=== PATIENT | female | born 1960 | race Caucasian/White ===

== ENCOUNTER 2022-05-08 11:51 | Outpatient (CLI) | payer BC, SELFPAY ==
[2022-05-08 21:25] LABS: Chloride* 101 mmol/L (96-114)
[2022-05-08 21:26] LABS: Albumin* 4.3 g/dL (3.3-5.0); Potassium* 4.4 mmol/L (3.6-5.1); Sodium* 138 mmol/L (135-149)
[2022-05-08 21:28] LABS: Aspartate Amino Transferase* 15 U/L (12-35); Bilirubin Total* 0.1 mg/dL (0.1-1.5); Carbon Dioxide* 30 mmol/L (20-32); Creatinine* 0.6 mg/dL (0.5-1.5); Estimated Glomerular Filt Rate 101 ml/min
[2022-05-08 21:29] LABS: Alanine Aminotransferase* 9 U/L (4-35); Alkaline Phosphatase* 75 U/L (40-150); Blood Urea Nitrogen* 13 mg/dL (7-30); Calcium* 9.5 mg/dL (8.4-10.6); Glucose* 97 mg/dL (60-115); Lipase* 24 U/L (23-300); Total Protein* 6.7 g/dL (6.0-8.3)
== END 2022-05-08 11:52 | disposition home or self-care (01) ==
PROVIDERS: PCP Physician Assistant Medical; Visit Provider Physician Assistant Medical
DX: R19.7 Diarrhea, unspecified (principal)
CPT/HCPCS: 80053; 83690

== ENCOUNTER 2022-05-13 08:45 | Outpatient (CLI) | payer BC, SELFPAY ==
--- NOTE | 2022-05-13 08:45 | CRLHL7_ITS ---
For Patients: As a result of the Century Cures Act, medical imaging exams and procedure reports are released immediately into your electronic medical record. You may view this report before your referring provider. If you have questions, please contact your health care provider. INDICATION: ABDOMINAL DISTENSION (GASEOUS) COMPARISON: CT 08/08/2021 TECHNIQUE: Real time bryant scale imaging and color Doppler analysis was performed of the right upper quadrant. FINDINGS: The patient`s liver is of normal size and has coarsened and increased echogenicity. There is a normal appearance of the hepatic IVC and proximal abdominal aorta. There is no evidence of ascites. The gallbladder is of normal size and there is no evidence of intraluminal stones or sludge. The gallbladder wall measures 2 mm in thickness. The common bile duct is of normal size and measures 5 mm in diameter at the level of the melvin hepatis. The pancreas appears normal. There is no evidence of a stone or hydronephrosis within the right kidney. The right kidney measures 10.3 cm in length. IMPRESSION: Moderate hepatic steatosis. Remainder normal. Dictated by Danny Frost MD @ 05/13/2022 9:30:41 AM (Electronically Signed)
== END 2022-05-13 08:46 | disposition home or self-care (01) ==
PROVIDERS: PCP Physician Assistant Medical; Visit Provider Physician Assistant Medical
DX: R14.0 Abdominal distension (gaseous) (principal); K76.0 Fatty (change of) liver, not elsewhere classified
CPT/HCPCS: 76705

== ENCOUNTER 2022-10-15 17:41 | Outpatient (CLI) | payer BC, SELFPAY ==
--- NOTE | 2022-10-15 18:00 | CRLHL7_ITS ---
For Patients: As a result of the Century Cures Act, medical imaging exams and procedure reports are released immediately into your electronic medical record. You may view this report before your referring provider. If you have questions, please contact your health care provider. BILATERAL SCREENING MAMMOGRAM WITH COMPUTER-AIDED DETECTION AND TOMOSYNTHESIS TECHNIQUE: CC and MLO views were obtained. These mammographic images have been obtained using full-field digital technique. These mammographic images were interpreted with the benefit of computer-aided detection. Breast Tomosynthesis was used in this interpretation. COMPARISON FILM: 06/25/21, 06/20/20, 11/03/17. FINDINGS: There are scattered areas of fibroglandular density IMPRESSION: There is no radiographic evidence for malignancy. ASSESSMENT: BI-RADS Category 1: Negative RECOMMENDATION: Routine screening mammogram in 1 year. A lay language report of this examination will be provided to the patient. Danny Frost M.D. Diagnostic Radiologist [email or web address] CLAIR/Dictated by: Danny Frost MD @ 10/16/2022 10:50:00 AM (Electronically Signed)
== END 2022-10-15 17:42 | disposition home or self-care (01) ==
PROVIDERS: PCP Physician Assistant Medical; Visit Provider Physician Assistant Medical
DX: Z12.31 Encounter for screening mammogram for malignant neoplasm of breast (principal)
CPT/HCPCS: 77063; 77067

== ENCOUNTER 2022-11-07 09:34 | Outpatient (CLI) | payer BC, SELFPAY ==
[2022-11-07 14:01] LABS: Chloride* 103 mmol/L (96-114); Sodium* 140 mmol/L (135-149)
[2022-11-07 14:02] LABS: Potassium* 4.2 mmol/L (3.6-5.1)
[2022-11-07 14:04] LABS: Carbon Dioxide* 29 mmol/L (20-32); Cholesterol* 226 mg/dL (90-199); Creatinine* 0.7 mg/dL (0.5-1.5); Estimated Glomerular Filt Rate 97 ml/min
[2022-11-07 14:05] LABS: Blood Urea Nitrogen* 11 mg/dL (7-30); Glucose* 103 mg/dL (60-115); HDL Cholesterol* 70 mg/dL (>=50); LDL Cholesterol Calculated 119 mg/dL (<100); Triglycerides* 184 mg/dL (40-149)
[2022-11-11 12:47] LABS: Vitamin B12* 618 pg/mL (243-894)
== END 2022-11-07 09:35 | disposition home or self-care (01) ==
LOC: LKVREF 09:36
PROVIDERS: PCP Physician Assistant Medical; Visit Provider Physician Assistant Medical
DX: Z00.00 Encounter for general adult medical examination without abnormal findings (principal); R53.83 Other fatigue; E78.5 Hyperlipidemia, unspecified; K76.0 Fatty (change of) liver, not elsewhere classified; F32.A Depression, unspecified; R41.89 Other symptoms and signs involving cognitive functions and awareness
CPT/HCPCS: 80048; 80061; 82607; 84443

== ENCOUNTER 2022-11-28 10:44 | Outpatient (CLI) | payer BC, SELFPAY ==
--- NOTE | 2022-11-28 11:00 | CRLHL7_ITS ---
For Patients: As a result of the Century Cures Act, medical imaging exams and procedure reports are released immediately into your electronic medical record. You may view this report before your referring provider. If you have questions, please contact your health care provider. INDICATION: Lung cancer screening. History of smoking. High risk patient with a 50 pack-year smoking history. The patient stopped smoking in 2020. TECHNIQUE: Low-dose lung cancer screening non-contrast CT chest. Dose reduction techniques were used. COMPARISON: None. FINDINGS: NODULES: None. LUNGS AND PLEURA: Normal. MEDIASTINUM: Normal. CORONARY ARTERY CALCIFICATION: None. LIMITED UPPER ABDOMEN: Normal. MUSCULOSKELETAL: Degenerative changes of the lower cervical spine. IMPRESSION: Negative for lung cancer screening purposes. LUNG-RADS CATEGORY: 1: Negative. RADIOLOGIST RECOMMENDATION: Continue annual screening with low-dose CT chest in 12 months. Please note that all CT scans at this facility use dose modulation, iterative reconstruction, and/or weight-based dosing when appropriate to reduce radiation dose to as low as reasonably achievable. Dictated by Scooby Hall MD @ 11/28/2022 3:33:20 PM (Electronically Signed)
== END 2022-11-28 10:45 | disposition home or self-care (01) ==
LOC: CT 10:45
PROVIDERS: PCP Physician Assistant Medical; Visit Provider Physician Assistant Medical
DX: Z12.2 Encounter for screening for malignant neoplasm of respiratory organs (principal); Z87.891 Personal history of nicotine dependence
CPT/HCPCS: 71271

== ENCOUNTER 2023-12-01 10:44 | Outpatient (CLI) | payer OTHER, SELFPAY ==
--- NOTE | 2023-12-01 11:00 | CT_ITS ---
Final Report Patient: QUINN HAGAN Facility:?[facility] Patient ID:?[id number] Site Patient ID:?[id number]. Site :?1960 Study:?CT Chest LUNG SCREENING-12/01/2023 11:13:53 AM Ordering Physician:?GWEN MI Final Report: INDICATION: Lung cancer screening. History of smoking. High risk patient with greater than 50 pack-year smoking history. TECHNIQUE: Low-dose lung cancer screening non-contrast CT chest. Dose reduction techniques were used. COMPARISON: 3 FINDINGS: NODULES: None. LUNGS AND PLEURA: Emphysema. MEDIASTINUM: No adenopathy. CORONARY ARTERY CALCIFICATION: None. LIMITED UPPER ABDOMEN: Postop changes to the left breast tissue. MUSCULOSKELETAL: Degenerative disc disease. IMPRESSION: Negative for lung cancer screening purposes. LUNG-RADS CATEGORY: 1: Negative. RADIOLOGIST RECOMMENDATION: Continue annual screening with low-dose CT chest in 12 months. Please note that all CT scans at this facility use dose modulation, iterative reconstruction, and/or weight-based dosing when appropriate to reduce radiation dose to as low as reasonably achievable. Dictated by Danny Frost MD @ 12/01/2023 11:22:11 AM (Electronic Signature)
== END 2023-12-01 10:45 | disposition home or self-care (01) ==
PROVIDERS: PCP Physician Assistant Medical; Visit Provider Physician Assistant Medical
DX: Z12.2 Encounter for screening for malignant neoplasm of respiratory organs (principal); Z87.891 Personal history of nicotine dependence
CPT/HCPCS: 71271

== ENCOUNTER 2023-12-19 08:49 | Outpatient (CLI) | payer OTHER, SELFPAY | END 2023-12-19 08:50 | disposition home or self-care (01) | LOC: NFLDREF 12-22 06:22 | PROVIDERS: PCP Physician Assistant Medical; Referring Provider Physician Assistant Medical; Visit Provider Physician Assistant Medical | DX: E78.5 Hyperlipidemia, unspecified (principal); K76.0 Fatty (change of) liver, not elsewhere classified; R73.01 Impaired fasting glucose; Z13.29 Encounter for screening for other suspected endocrine disorder; Z13.21 Encounter for screening for nutritional disorder | CPT/HCPCS: 80053; 80061; 82306; 84443 ==

== ENCOUNTER 2024-04-20 17:35 | Outpatient (CLI) | payer OTHER, SELFPAY ==
--- NOTE | 2024-04-20 17:40 | CRLHL7_ITS ---
For Patients: As a result of the Century Cures Act, medical imaging exams and procedure reports are released immediately into your electronic medical record. You may view this report before your referring provider. If you have questions, please contact your health care provider. BILATERAL SCREENING MAMMOGRAM WITH COMPUTER-AIDED DETECTION AND TOMOSYNTHESIS TECHNIQUE: CC and MLO views were obtained. These mammographic images have been obtained using full-field digital technique. These mammographic images were interpreted with the benefit of computer-aided detection. Breast tomosynthesis was used in this interpretation. COMPARISON FILM: 10/15/22, 06/25/21, 06/20/20. FINDINGS: There are scattered areas of fibroglandular density. IMPRESSION: There is no radiographic evidence for malignancy. ASSESSMENT: BI-RADS Category 1: Negative RECOMMENDATION: Routine screening mammogram in 1 year. A lay language report of this examination will be provided to the patient. DANNY PAREDES M.D. Diagnostic Radiologist [email or web address] Transcribed: 2:[address]/Dictated by: Danny Paredes MD @ 04/21/2024 11:02:00 AM (Electronically Signed)
== END 2024-04-20 17:36 | disposition home or self-care (01) ==
LOC: MAMMO 17:35
PROVIDERS: PCP Physician Assistant Medical; Visit Provider Physician Assistant Medical
DX: Z12.31 Encounter for screening mammogram for malignant neoplasm of breast (principal)
CPT/HCPCS: 77063; 77067

== ENCOUNTER 2024-06-09 13:35 | Outpatient (CLI) | payer OTHER, SELFPAY ==
--- NOTE | 2024-06-09 13:45 | MR_ITS ---
[address] [address] Phone:?[phone] Fax:?[phone] Referring Physician Information: Sony Lopez [address] [facility] [address] Phone:?[phone] Fax:?[phone] Patient:Sylvester Galaviz D.O.B:?1960 Sex:?Female Phone:?[phone] [facility] MRN:?[id number] Exam Date:?06/09/2024 EXAM: MRI of the LEFT SHOULDER, without contrast CLINICAL: Left shoulder pain. Evaluate for rotator cuff injury. COMPARISONS: X-rays dated 06/03/2024. TECHNICAL: Multiplanar multisequence MRI of the left shoulder was obtained. SEDATION: None. CONTRAST: None. FINDINGS: Rotator cuff: Supraspinatus/Infraspinatus: There is high-grade near full-thickness to full- thickness tearing involving the anterior aspect of the distal supraspinatus tendon on coronal series 7 images 9-10. There is mild partial interstitial insertional tearing of the remainder of the distal supraspinatus tendon on coronal series 7 images 11-12. Advanced tendinosis of the anterior supraspinatus tendon with moderate tendinosis of the remainder of the supraspinatus tendon and infraspinatus tendon. No significant fatty atrophy of the muscle bellies. Teres minor: No tendinosis, tear or atrophy. Subscapularis: There is moderate tendinosis and mild partial tearing of the distal tendon. No significant fatty atrophy of the muscle belly. Bursae: Subacromial-subdeltoid: Mild bursal fluid. Subcoracoid: No significant bursal fluid. Coracoacromial arch: Acromion morphology: Type II. No os acromiale. Acromiohumeral space: Within normal limits. Coracohumeral space: Within normal limits. Biceps tendon, long head: There is ill-defined tendinosis and partial tearing of the imaged proximal extra-articular tendon extending into the intra-articular tendon. There is moderate fluid with some low signal synovitis also noted about the imaged proximal extra-articular tendon. No evidence of significant tendon displacement. Glenohumeral joint: Small volume of glenohumeral joint fluid is present. Articular cartilage: No significant chondral loss. Capsule: No convincing evidence of capsular thickening or injury. Labrum: Mild degenerative changes are seen to involve the superior labrum. No discrete labral tear identified as visualized. No perilabral cyst identified. Bones: No suspicious marrow signal alteration, fracture or dislocation. Acromioclavicular joint: Moderate degenerative hypertrophic changes are seen to involve the AC joint with mild reactive marrow edema about the articulation. No AC joint injury/widening. IMPRESSION: 1. High-grade near full-thickness to full-thickness tearing involving the anterior distal supraspinatus tendon. Mild partial interstitial insertional tearing of the remainder of the distal supraspinatus tendon. There is advanced tendinosis of the anterior distal supraspinatus tendon with moderate tendinosis of the remainder of the distal supraspinatus tendon and involving the infraspinatus tendon. 2. Moderate tendinosis and mild partial tearing of the distal subscapularis tendon. 3. Ill-defined tendinosis and partial tearing of the long head biceps tendon. Moderate fluid with some synovitis also noted about the imaged proximal extra- articular tendon. 4. Moderate AC joint arthrosis. [facility] Electronically signed on 06/09/2024 3:51:00 PM by Trev Verma D.O.
== END 2024-06-09 13:36 | disposition home or self-care (01) ==
PROVIDERS: PCP Physician Assistant Medical; Visit Provider Physician Assistant Medical
DX: M25.512 Pain in left shoulder (principal); M75.102 Unspecified rotator cuff tear or rupture of left shoulder, not specified as traumatic; S46.212A Strain of muscle, fascia and tendon of other parts of biceps, left arm, initial encounter; S46.912A Strain of unspecified muscle, fascia and tendon at shoulder and upper arm level, left arm, initial encounter; M19.012 Primary osteoarthritis, left shoulder
CPT/HCPCS: 73221

== ENCOUNTER 2024-06-30 07:03 | Day surgery (SDC) | payer OTHER, SELFPAY ==
[2024-06-30] VITALS (18 sets, daily range): BP systolic 124–148; BP diastolic 68–98; PULSE 62–92; RESP 14–17; TEMP 36.1–36.8; O2SAT 93–97; BMI 34.4
--- NOTE | 2024-06-30 07:33 | W.PM.H&PU ---
History & Physical Update History & Physical Update H&P Reviewed and patient assessed: No changes noted
[2024-06-30] MEDS: SODIUM CHLORIDE 0.9 % (FLUSH) 10 ML SYRINGE IVF (07:45)
[2024-06-30] MEDS: LACTATED RINGERS 1000 ML 1,000 ML 100 ML IV ×2 (07:45→10:02)
[2024-06-30] MEDS: SCOPOLAMINE 1 MG/3 DAY PATCH 1 PATCH TRANSDERMA (08:15)
[2024-06-30] MEDS: fentaNYL 100 MCG/2 ML inj IVP (08:29)
[2024-06-30] MEDS: MIDAZOLAM HCL 1 MG/ML inj IVP (08:29)
--- NOTE | 2024-06-30 08:31 | SUR.PREOP ---
TIME?OUT:827? PT/RN/MDA?VERIFICATION?OF?SURGICAL?SITE,?PROCEDURE,?AND?CONSENT OBTAINED?PRIOR?TO?INVASIVE?PROCEDURE.
[2024-06-30] MEDS: CEFAZOLIN 2 GM in 0.9 % SODIUM CHLORIDE Mini-bag 100 ML IVPB (08:55)
[2024-06-30] MEDS: EPINEPHrine 1 MG in SODIUM CHLORIDE IRRIG SOLUTION 3,000 ML 3001 MG IRRIGATION ×8 (09:18→10:37)
--- NOTE | 2024-06-30 09:24 | SUR.OPER ---
PATIENT QUESTIONS ANSWERED SATISFACTORILY PREOPERATIVELY. PATIENT BROUGHT TO OR #3 PER CART FOLLOWING THE BLOCK. Patient positioned supine on OR #3 bed for the intubation.? Perioperative team wrapped the right arm in a neutral position on the pt. abdomen with the drawsheet. Left arm elevated on an IV pole in a padded strap. Final approval of positioning by surgeon. CONTINUOUS IRRIGATION OF THE LEFT SHOULDER WITH MIXTURE OF 3000 NACL AND 1mg OF EPINEPHRINE DURING PROCEDURE.
--- NOTE | 2024-06-30 10:40 | PM.ORPRC ---
Procedure Note Date of procedure: 06/30/24 Procedure: PREOPERATIVE DIAGNOSES: 1. Left shoulder rotator cuff tear. 2. Left shoulder AC joint osteoarthrosis 3. Left shoulder long head biceps partial-thickness tearing 4. Left shoulder labral degenerative fraying tearing 5. Left shoulder subacromial impingement syndrome. POSTOPERATIVE DIAGNOSES: 1. Left shoulder rotator cuff tear (upper border subscapularis and full-thickness supraspinatus) 2. Left shoulder AC joint osteoarthrosis 3. Left shoulder long head biceps partial-thickness tearing 4. Left shoulder labral degenerative fraying tearing 5. 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 Left shoulder subacromial impingement syndrome. NAME OF OPERATION: 1. Left shoulder arthroscopic rotator cuff repair (upper border subscapularis & full-thickness supraspinatus) 2. Left shoulder arthroscopic distal clavicle excision 3. Left shoulder arthroscopic extensive glenohumeral debridement including biceps tenotomy and biceps tendon stump debridement, labral debridement, and humeral head chondral tissue debridement) 4. Left shoulder arthroscopic subacromial decompression SURGEON: Giorgi Delgado MD CRIMINAL PROFILER: Emile Cardenas PA-C. Of note, a skilled mental health assistant was critical for this case to aide in patient positioning, suture manipulation, arm positioning, instrument positioning, and closure. ANESTHESIA: General plus preoperative supraclavicular block. EBL: 25 mL IMPLANTS: Arthrex 4.75 mm BioComposite SwiveLock suture anchor (x1); Arthrex 5.5 mm BioComposite SwiveLock suture anchor (x2); Arthrex 2.6 mm knotless FiberTak RC (x2) COMPLICATIONS: None evident INDICATIONS: The patient is a pleasant, 63-year-old female who has experienced left shoulder pain that has been increasing in recent time. Physical exam and imaging were consistent with a rotator cuff tear. Given their findings, as well as the weakness and pain, and inadequate response to nonoperative management, recommendation was made for surgery. FINDINGS: Exam under anesthesia revealed stable shoulder with excellent range of motion. The diagnostic arthroscopy revealed grade 2-3 chondromalacia humeral head anterosuperiorly.. The Subscapularis tendon was torn from its upper border with moderate retraction. The long head of the biceps tendon was torn and high-grade partial-thickness manner through all the visualized intra-articular biceps tendon and was subluxed out of the bicipital groove. The superior rotator cuff tendon was found to be torn full-thickness through the entire supraspinatus and the anterior portion of the infraspinatus. The labrum was degeneratively frayed in the anterior and superior aspects. No loose bodies were identified within the pouch or subscapularis recess. PROCEDURE: Following a thorough discussion of risks, benefits, and alternatives, consent was obtained and the left shoulder was marked. The patient was brought to the operating room and placed supine on the operating table. Induction of anesthesia was completed after preoperative supraclavicular block was administered in preop holding. Appropriate time out was performed identifying proper patient, site, and procedure. 2 g IV Ancef was administered within 1 hour of incision preoperatively. The left upper extremity was prepped and draped in the appropriate sterile fashion using ChloraPrep prep. This was after the patient was positioned in the beach chair with their head in neutral alignment and all bony prominences well padded. The shoulder was insufflated with 20mL of normal saline via an 18g spinal needle from a posterior approach. An 11 blade skin incision allowed a blunt trochar to be inserted and diagnostic arthroscopy to be performed with the findings as noted above. An anterior portal was established with an outside in technique. This allowed the probe to be inserted and confirm the diagnostic arthroscopic findings. The shaver was then inserted and allowed debridement of the anterior and superior labrum as well as the loose chondral flaps on the anterosuperior humeral head and finally the biceps tendon tissue after performing a biceps tenotomy with a combination of Beaufort cautery and torpedo shaver. Accordingly, the biceps tendon had high-grade partial-thickness tearing and the tissue quality was poor and would not likely be amenable to tenodesis, and thus a biceps tenotomy was performed. The stump was debrided with a shaver. Following this, the upper border subscapularis was repaired after debriding the lesser tuberosity with the shaver and Beaufort cautery. Subscapularis was captured in horizontal mattress fashion with a fiber tape suture. The tails were brought to a single anchor in the lesser tuberosity with excellent reapproximation of the subscap tendon and good excursion/tension. Thereafter, the subacromial space was entered. Here, a complete bursectomy and partial acromioplasty/subacromial decompression was performed with a combination of radiofrequency ablator, the shaver, and a 5.5 mm bur. Additionally, distal clavicle excision was performed with the bur. 8 mm of distal clavicle was resected based on the width of our bur. Further inspection of the supraspinatus and infraspinatus rotator cuff was performed. This identified the tear as noted above. The margins of the tear were debrided, and the greater tuberosity was debrided with a combination of the apollo cautery, shaver, and bur on reverse setting. After gentle decortication, a speed bridge configuration with a medial jessa was planned. 2 medial anchors were placed and the sutures were passed through the rotator cuff with a fiber link (2.6 mm knotless FiberTak RC). The knotless suture tails were then retrieved, crossed, and cinched down for the medial jessa purpose. A tail from each of the medial row anchor FiberTapes were then retrieved and brought to a lateral row anchor. Excellent reapproximation of the tissue to the greater tuberosity was achieved with broad footprint compression. The rotator cuff showed excellent reapproximation of the greater tuberosity with good security upon probing. Prior to anchor mule driver removal, the eyelet sutures were tugged on for each anchor and found that the anchor had excellent stability within the bone. The shoulder was placed through range of motion and found to be stable. The rotator cuff was re-probed and found to be stable. Instruments were removed. Excess fluid was drained, closure performed with 4-0 Monocryl and Steri-Strips. Dressings were applied. Sling was applied. The patient was awoken from anesthesia and transferred to the PACU in stable condition. A skilled mental health assistant was critical for this case to aid in patient positioning, limb positioning, skill to manipulate arthroscopic instruments and camera, suture management, patient safety, and closure. PLAN: 1. Elbow, forearm, wrist and digit range of motion of operative extremity as tolerated. 2. Encouraged ice. 3. Oxycodone for pain as needed. 4. Sling at all times except for ROM and showering. 5. Follow up with PA visit in 1-2 weeks for wound check. Initiate physical therapy following that visit for passive range of motion. Initiate active assisted range of motion at 6 weeks. May do pendulums now.
--- NOTE | 2024-06-30 10:59 | W.ANESCHARGE ---
Anesthesia Charges Start Date/Time Anesthesia Start Date: 06/30/24 Anesthesia Start Time: 08:42 Stop Date/Time Anesthesia Stop Date: 06/30/24 Anesthesia Stop Time: 10:58
--- NOTE | 2024-06-30 11:01 | W.PM.NB ---
Nerve Block Nerve Block Time Seen by Provider: 08:38 Date Seen: 06/30/24 Type of block requested by surgeon for post-operative analgesia: supraclavicular Side: left Time out performed: Yes Verification of patient name: Yes Verification of date of : Yes Site marking: site marked Name of person performing procedure: Liban Continuous monitoring Was continuous monitoring of O2 sat, B/P, cardiac specialist, recorded every 15 minutes?: Yes Procedure Checklist: sterile prep, needles and gloves Ultrasound guided. Images saved: Yes Medications given in 5ml increments after negative aspiration: Ropivicaine %: 0.5 mL: 20 Needle gauge: 22 Decadron (mg): 10 Precedex (mcg): 25 Patient tolerated procedure well: Yes Block Charges Block Charge (with Pro Fee): Brachial Plexus Use of Ultrasound Machine for Block: Yes- US Guidance/pain block
--- NOTE | 2024-06-30 11:02 | W.ANESCHARGE ---
Anesthesia Charges Start Date/Time Anesthesia Start Date: 06/30/24 Anesthesia Start Time: 08:42 Stop Date/Time Anesthesia Stop Date: 06/30/24 Anesthesia Stop Time: 10:58
[2024-06-30] MEDS: fentaNYL 100 MCG/2 ML inj 50 MCG IVP (11:24)
--- NOTE | 2024-06-30 11:41 | SUR.PHASEI ---
AFTER TAKING BLOOD PRESSURE CUFF OFF/RED LINES FROM TOURNIQUET NOTED. PATIENT STATES THAT THIS ALWAYS HAPPENS FROM TOURNIQUET CUFF BEING ON AFTER ANY PROCEDURES WHERE SHE HAD A CUFF ON.
--- NOTE | 2024-06-30 12:10 | SUR.PHASEII ---
Localized petechiae rash noted at IV site, no itchiness noted with rash upon arrival in SDS from PACU. Rash reported to Anesthesia, if patient develops itchiness with rash ok to give benedryl. Will continue to monitor.
[2024-06-30] MEDS: OXYCODONE 5 MG TABLET PO (12:30)
== END 2024-06-30 13:15 | disposition home or self-care (01) ==
LOC: OR 07:05
PROVIDERS: PCP Physician Assistant Medical; Visit Provider Orthopaedic Surgery Sports Medicine
PROC: (CPT 29805; principal; 2024-06-30 09:00)
DX: M75.102 Unspecified rotator cuff tear or rupture of left shoulder, not specified as traumatic (principal); M19.012 Primary osteoarthritis, left shoulder; S46.112A Strain of muscle, fascia and tendon of long head of biceps, left arm, initial encounter; S43.432A Superior glenoid labrum lesion of left shoulder, initial encounter; M94.212 Chondromalacia, left shoulder; M75.42 Impingement syndrome of left shoulder; G89.18 Other acute postprocedural pain
CPT/HCPCS: 29827; 29828; 29826; 29824; 29823; 01630; 64415; 76942; A9270; C1713; J0171; J0330; J0690; J2250; J2371; J2405; J2704; J2795; J3010; J7120; L3670

== ENCOUNTER 2024-08-30 13:45 | Outpatient (RCR) | payer OTHER, SELFPAY | END 2024-12-28 23:59 | disposition home or self-care (01) | PROVIDERS: PCP Physician Assistant Medical; Visit Provider Physician Assistant Medical | DX: M25.512 Pain in left shoulder (principal); Z98.890 Other specified postprocedural states; Z74.09 Other reduced mobility; R53.1 Weakness; M54.2 Cervicalgia; Z51.89 Encounter for other specified aftercare | CPT/HCPCS: 97016; 97110; 97140; 97161; 97164 ==

== ENCOUNTER 2025-03-21 15:57 | Outpatient (CLI) | payer MEDICARE, SELFPAY | END 2025-03-21 15:58 | disposition home or self-care (01) | PROVIDERS: PCP Physician Assistant Medical; Visit Provider Physician Assistant Medical | DX: E78.5 Hyperlipidemia, unspecified (principal); R53.83 Other fatigue; H04.123 Dry eye syndrome of bilateral lacrimal glands; I10 Essential (primary) hypertension; R73.01 Impaired fasting glucose; R41.89 Other symptoms and signs involving cognitive functions and awareness | CPT/HCPCS: 85520; 85525; 85598; 85610; 85613; 85670; 85730; 86038; 86140; 86235; 86431 ==

== ENCOUNTER 2025-04-25 09:14 | Outpatient (CLI) | payer MEDICARE, SELFPAY | END 2025-04-25 09:15 | disposition home or self-care (01) | LOC: NFLDREF 04-26 15:36 | PROVIDERS: PCP Physician Assistant Medical; Referring Provider Physician Assistant Medical; Visit Provider Physician Assistant Medical | DX: E78.5 Hyperlipidemia, unspecified (principal); R73.01 Impaired fasting glucose; I10 Essential (primary) hypertension; Z79.899 Other long term (current) drug therapy | CPT/HCPCS: 80053; 80061; 82306; 84443 ==

== ENCOUNTER 2025-06-02 15:36 | Outpatient (CLI) | payer MEDICARE, SELFPAY ==
[2025-06-04 03:56] LABS: HPV Source Cervix
[2025-06-08 09:41] LABS: Pap Test Digital Imaging Done
== END 2025-06-02 15:37 | disposition home or self-care (01) ==
PROVIDERS: PCP Physician Assistant Medical; Visit Provider Physician Assistant Medical
DX: Z00.00 Encounter for general adult medical examination without abnormal findings (principal)
CPT/HCPCS: 87624; 87625; 88141; 88142; 88175

== ENCOUNTER 2025-07-07 13:51 | Outpatient (CLI) | payer MEDICARE, SELFPAY ==
--- NOTE | 2025-07-07 14:00 | CRLHL7_ITS ---
For Patients: As a result of the Century Cures Act, medical imaging exams and procedure reports are released immediately into your electronic medical record. You may view this report before your referring provider. If you have questions, please contact your health care provider. INDICATION: Lung cancer screening. History of smoking. High risk patient with greater than 50 pack-year smoking history. TECHNIQUE: Low-dose lung cancer screening non-contrast CT chest. Dose reduction techniques were used. COMPARISON: 12/01/2023 FINDINGS: NODULES: None. LUNGS AND PLEURA: Emphysema. MEDIASTINUM: No adenopathy. Similar appearance of the thyroid. CORONARY ARTERY CALCIFICATION: Mild. LIMITED UPPER ABDOMEN: Unremarkable. MUSCULOSKELETAL: Degenerative disc disease. IMPRESSION: Negative for lung cancer screening purposes. LUNG-RADS CATEGORY: 1: Negative. RADIOLOGIST RECOMMENDATION: Continue annual screening, if eligible, with low-dose CT chest in 12 months. Please note that all CT scans at this facility use dose modulation, iterative reconstruction, and/or weight-based dosing when appropriate to reduce radiation dose to as low as reasonably achievable. Dictated by Danny Frost MD @ 07/07/2025 2:35:42 PM (Electronically Signed)
--- NOTE | 2025-07-07 14:30 | CRLHL7_ITS ---
For Patients: As a result of the Century Cures Act, medical imaging exams and procedure reports are released immediately into your electronic medical record. You may view this report before your referring provider. If you have questions, please contact your health care provider. DXA BONE MINERAL DENSITY STUDY Reason for exam: Encounter for general adult medical examination without abnormal findings. Current height (in): 62. Weight (lb): 190. Menopause age: 51. Ethnicity: White. 1. Have you had a previous hip or vertebral fracture? No. 2. Have you had any fractures during your adult life which did not result from significant trauma (e.g., auto accident)? No. 3. Did either of your parents have a hip fracture? No. 4. Do you smoke? Yes. 5. Have you ever taken Glucocorticoids? Yes. 6. Do you have rheumatoid arthritis? No. 7. Do you have secondary osteoporosis? No. 8. Do you drink 3 or more alcoholic drinks per day? No. 9. Are you being treated for osteoporosis? No. 10. Have you ever taken any of the following medications: Actonel, Evista, Fosamax, Miacalcin, Reclast, Boniva, Forteo, HRT (i.e. estrogen/hormone therapy), Protelos, Prolia, Vitamin D, Calcium, other ??? please specify. ANSWER: Yes, vitamin D. 11. Do you have any of the following medical conditions: Anorexia or bulimia, asthma or emphysema, end stage renal disease, hyperparathyroidism, any seizure disorders, cancer, inflammatory bowel diseases, hysterectomy, other ??? please specify. ANSWER: No. 12. What was your maximum height (inches)? 62.5. 13. Do you perform weight bearing exercise regularly? No. 14. Do you regularly consume dairy products? Yes. 15. Do you drink caffeinated beverages? Yes. 16. At what age did your period start? 11. 17. Are you premenopausal? No. 18. How many full-term pregnancies have you had? 3. 19. Have you ever missed your period for more than 6 months in a row (not including or menopause)? No. TECHNIQUE: Bone mineral density study was performed using the [employer]. FINDINGS: The results of the study expressed as bone mineral density (BMD) are as follows: Lumbar spine L1 to L4: BMD: 0.823 g/cm2. T-score: -2.0. Z-score: -0.2. Neck Left: BMD: 0.667 g/cm2. T-score: -1.6. Z-score: -0.1. Right: BMD: 0.637 g/cm2. T-score: -1.9. Z-score: -0.4. Total Left: BMD: 0.865 g/cm2. T-score: -0.6. Z-score: 0.6. Right: BMD: 0.7575 g/cm2. T-score: -1.5. Z-score: -0.3. IMPRESSION: Osteopenia. *Comparison exams done prior to 02/2020 were performed on different unit, [employer]. FRAX 10-year Fracture Risk Major Osteoporotic Fracture: 15 percent Hip Fracture: 3.8 percent Reported Risk Factors: [place] () Neck BMD=0.637, BMI=34.8, smoking, glucocorticoids Danny Frost M.D. Diagnostic Radiologist [email or web address] ALANA/kierra lozada/Dictated by: Danny Frost MD @ 07/08/2025 9:48:00 AM (Electronically Signed)
== END 2025-07-07 13:52 | disposition home or self-care (01) ==
PROVIDERS: PCP Physician Assistant Medical; Visit Provider Physician Assistant Medical
DX: Z12.2 Encounter for screening for malignant neoplasm of respiratory organs (principal); Z87.891 Personal history of nicotine dependence; Z13.820 Encounter for screening for osteoporosis; M85.89 Other specified disorders of bone density and structure, multiple sites; Z78.0 Asymptomatic menopausal state
CPT/HCPCS: 71271; 77080